=== PATIENT | female | born 1975 ===

== ENCOUNTER 2018-10-03 08:05 | Emergency (ER) | payer OTHER ==
[~2018-10-03] VITALS: Ht 162.6 cm; Wt 67.1 kg
[2018-10-03] MEDS ORDERED: CYTOTEC100 MCG (10:57)
== END 2018-10-03 13:03 | disposition home or self-care (01) ==
LOC: ER 08:05
DX: S01.82XA Laceration with foreign body of other part of head, initial encounter (principal); W18.09XA Striking against other object with subsequent fall, initial encounter; Y93.89 Activity, other specified; Y92.091 Bathroom in other non-institutional residence as the place of occurrence of the external cause; Y99.8 Other external cause status

== ENCOUNTER 2018-10-11 08:49 | Emergency (ER) | payer OTHER ==
[~2018-10-11] VITALS: Ht 162.6 cm; Wt 67.1 kg
[~2018-10-11 08:49] MED LIST: CYTOTEC100 MCG
== END 2018-10-11 09:38 | disposition home or self-care (01) ==
LOC: ER 08:49
DX: Z48.02 Encounter for removal of sutures (principal)